=== PATIENT | female | born 1975 | race Caucasian/White ===

== ENCOUNTER 2016-05-04 13:40 | Inpatient (IN) ==
--- NOTE | 2016-05-04 13:51 | Emergency Department Note ---
Overdose - Lab Data Result diagrams: 05/04/16 14:15 05/04/16 14:15 Lab Results 05/04/16 05/04/16 05/04/16 Range/Units 14:15 14:15 14:15 WBC 8.2 (4.3-11.1) K/mcL RBC 4.61 (3.82-4.97) M/mcL Hgb 13.0 (11.5-15.4) g/dL Hct 40.9 (35.3-44.9) % MCV 88.7 (83.0-100.0) fL MCH 28.2 (28.0-33.3) pg MCHC 31.8 (31.6-35.5) g/dL RDW 12.2 (11.5-14.5) % Plt Count 267 (140-400) K/mcL MPV 10.4 (9.4-12.4) fL Immature Gran % 0.4 (0-4) % Seg Neutrophils % 74.6 % Lymphocytes % 17.5 % Monocytes % 3.3 % Eosinophils % 4.0 % Basophils % 0.2 % Neutrophils # 6.1 (1.6-8.9) K/mcL Lymphocytes # 1.4 (0.6-4.6) K/mcL Monocytes # 0.3 (0.0-1.3) K/mcL Eosinophils # 0.3 (0.0-0.6) K/mcL Basophils # 0.0 (0.0-0.2) K/mcL Sodium 139 (136-145) mEq/L Potassium 4.4 (3.5-4.5) mEq/L Chloride 107 (98-109) mEq/L Carbon Dioxide 21 (19-29) mEq/L BUN 11 (7-20) mg/dL Creatinine 1.00 (0.57-1.11) mg/dL Est GFR ( Amer) > 60 (> 60) Est GFR (Non-Af Amer) > 60 (> 60) BUN/Creatinine Ratio 11 (6-26) Glucose 229 H (70-99) mg/dL Calculated Osmolality 295 (280-300) Calcium 8.2 L (8.6-10.8) mg/dL Total Bilirubin 0.6 (0.2-1.2) mg/dL Direct Bilirubin 0.2 (0.0-0.5) mg/dL Indirect Bilirubin 0.4 (0.0-1.2) mg/dL AST 27 (5-34) Units/L ALT 25 (0-55) Units/L Alkaline Phosphatase 73 (38-126) Units/L Serum Total Protein 7.1 (6.0-8.3) g/dL Albumin 3.6 (3.5-5.0) g/dL Globulin 3.5 (2.4-3.5) g/dL Albumin/Globulin Ratio 1.0 L (1.1-2.2) Serum , Qual Negative (Negative) Urine Color (Yellow) Urine Clarity (Clear) Urine pH (5.0-8.0) pH Units Ur Specific [place] (1.010-1.025) Urine Protein (Neg-Trace) mg/dL Urine Glucose (UA) (Normal) mg/dL Urine Ketones (Negative) mg/dL Urine Blood (Negative) Urine Nitrite (Negative) Urine Bilirubin (Negative) Urine Urobilinogen (Normal) mg/dL Ur Leukocyte Esterase (Negative) Urine Microscopic RBC (0-3) per hpf Urine Microscopic WBC (0-3) per hpf Ur Squamous Epith Cells (None-Few) per lpf Urine Bacteria (None-Few) per hpf Hyaline Casts (None-Few) per lpf Salicylates < 5.0 L (15-30) mg/dL Urine Opiates Screen (Xpbtkl=216) ng/mL Acetaminophen < 1.0 L (10-30) mcg/mL Ur Barbiturates Screen (Ftqguo=452) ng/mL Ur Phencyclidine Scrn (Cutoff=25) ng/mL Ur Amphetamines Screen (Wzretp=0506) ng/mL U Benzodiazepines Scrn (Dbvruo=402) ng/mL Urine Cocaine Screen (Cutoff= 300) ng/mL U Marijuana (THC) Screen (Cutoff = 50) ng/mL Ethyl Alcohol < 10 (0-10) mg/dL 05/04/16 05/04/16 Range/Units 14:55 14:55 WBC (4.3-11.1) K/mcL RBC (3.82-4.97) M/mcL Hgb (11.5-15.4) g/dL Hct (35.3-44.9) % MCV (83.0-100.0) fL MCH (28.0-33.3) pg MCHC (31.6-35.5) g/dL RDW (11.5-14.5) % Plt Count (140-400) K/mcL MPV (9.4-12.4) fL Immature Gran % (0-4) % Seg Neutrophils % % Lymphocytes % % Monocytes % % Eosinophils % % Basophils % % Neutrophils # (1.6-8.9) K/mcL Lymphocytes # (0.6-4.6) K/mcL Monocytes # (0.0-1.3) K/mcL Eosinophils # (0.0-0.6) K/mcL Basophils # (0.0-0.2) K/mcL Sodium (136-145) mEq/L Potassium (3.5-4.5) mEq/L Chloride (98-109) mEq/L Carbon Dioxide (19-29) mEq/L BUN (7-20) mg/dL Creatinine (0.57-1.11) mg/dL Est GFR ( Amer) (> 60) Est GFR (Non-Af Amer) (> 60) BUN/Creatinine Ratio (6-26) Glucose (70-99) mg/dL Calculated Osmolality (280-300) Calcium (8.6-10.8) mg/dL Total Bilirubin (0.2-1.2) mg/dL Direct Bilirubin (0.0-0.5) mg/dL Indirect Bilirubin (0.0-1.2) mg/dL AST (5-34) Units/L ALT (0-55) Units/L Alkaline Phosphatase (38-126) Units/L Serum Total Protein (6.0-8.3) g/dL Albumin (3.5-5.0) g/dL Globulin (2.4-3.5) g/dL Albumin/Globulin Ratio (1.1-2.2) Serum , Qual (Negative) Urine Color Yellow (Yellow) Urine Clarity Cloudy A (Clear) Urine pH 6.0 (5.0-8.0) pH Units Ur Specific [place] 1.021 (1.010-1.025) Urine Protein 30 H (Neg-Trace) mg/dL Urine Glucose (UA) 100 H (Normal) mg/dL Urine Ketones Negative (Negative) mg/dL Urine Blood Small H (Negative) Urine Nitrite Negative (Negative) Urine Bilirubin Negative (Negative) Urine Urobilinogen Normal (Normal) mg/dL Ur Leukocyte Esterase Small H (Negative) Urine Microscopic RBC 3-5 H (0-3) per hpf Urine Microscopic WBC 30-50 H (0-3) per hpf Ur Squamous Epith Cells Many H (None-Few) per lpf Urine Bacteria Many H (None-Few) per hpf Hyaline Casts Few (None-Few) per lpf Salicylates (15-30) mg/dL Urine Opiates Screen Negative (Jkjjoh=677) ng/mL Acetaminophen (10-30) mcg/mL Ur Barbiturates Screen Negative (Bkbtnv=375) ng/mL Ur Phencyclidine Scrn Negative (Cutoff=25) ng/mL Ur Amphetamines Screen Negative (Unqcgg=9111) ng/mL U Benzodiazepines Scrn Positive H (Essvvg=999) ng/mL Urine Cocaine Screen Positive H (Cutoff= 300) ng/mL U Marijuana (THC) Screen Negative (Cutoff = 50) ng/mL Ethyl Alcohol (0-10) mg/dL Overdose HPI - General Chief Complaint: ED Overdose Stated Complaint: Overdose Time Seen by Provider: 05/04/16 13:46 Source: patient Mode of arrival: ambulatory Limitations: altered mental status Nursing Notes Reviewed: Yes Vital Signs Reviewed: Yes - History of Present Illness HPI Narrative: 41-year-old comes in apparent heroin overdose not sure of anything else. Patient somnolent but arousable. Squad did give Narcan 2 mg with some improvement in symptoms. Pt Subjective Complaint: accidental overdose Onset (ago): Just LIABILITY CLAIMS EXAMINER Timing confirmed by: caregiver How Overdose Was Discovered: other (Unknown) Treatments Prior to Arrival: narcan - Related Data Home Medications Medication Instructions Recorded Confirmed Depakote (12 HR) 500 mg PO BID 02/07/16 02/07/16 Gabapentin [Neurontin] 400 mg PO TID 02/07/16 02/07/16 Venlafaxine XR (24 HR) [Effexor XR] 75 mg PO DAILY 02/07/16 02/07/16 Previous Rx's Medication Instructions Recorded Acetaminophen [Tylenol] 650 mg PO Q6HR PRN #40 tablet 02/08/16 Lactobacillus [Culturelle] 1 each PO BID #60 cap.sprink 02/08/16 Naproxen [Naprosyn] 500 mg PO BIDWM PRN #10 tablet 02/08/16 Allergies Allergy/AdvReac Type Severity Reaction Status Date / Time No Known Allergies Allergy Verified 11/12/14 21:47 Limitations: ROS unobtainable due to patients medical condition Past Medical History - Past Medical History Medical history: Reports: other Surgical history: Reports: hysterectomy Psychiatric history: Reports: anxiety, bipolar, prior suicide attempt, previous psychiatric hospitalization, other - Social History Smoking Status: Former smoker Smokeless Tobacco Status: No Alcohol use: Reports: occasionally Drug use: Reports: cocaine, opiates, marijuana, IVDU Physical Exam - General Limitations: altered mental status General appearance: lethargic - Head Head exam: atraumatic, normocephalic, normal inspection - Eye Eye exam: Present: normal appearance, PERRL, EOMI - ENT ENT exam: normal exam, normal oropharynx, mucous membranes moist - Neck Neck exam: Present: normal inspection, full ROM, trachea midline - Chest Chest inspection: Present: normal inspection, symmetric chest wall rise - Respiratory Respiratory exam: Present: normal lung sounds bilaterally - Cardiovascular Cardiovascular exam: Present: regular rate, normal rhythm, normal heart sounds - Abdominal Exam Abdominal exam: Present: soft, Non-Tender. Absent: tenderness, distention, guarding, rebound, rigidity - Extremities Exam Extremities exam: Present: normal inspection, full ROM. Absent: tenderness, pedal edema - Expanded Lower Extremity Exam Neurovascular/Tendon exam: Absent: motor deficit, sensory deficit, tendon deficit Gait: not tested/not observed - Back Exam Back exam: Present: normal inspection, full ROM. Absent: tenderness - Neurological Exam Neurological exam: Present: alert, oriented X3 - Psychiatric Psychiatric exam: Present: normal affect, normal mood - Skin Skin exam: Present: warm, dry, intact, normal color Course - Reevaluation(s) Reevaluation #1: More easily arousable. Patient denies suicidal ideation. Respiratory rate is 12 Time: 15:52 Reevaluation #2: Continues to be somnolent although arousable. Will require monitoring. Time: 16:41 - Consultations Consultation #1: Accepted by Darlene Hodge nurse practitioner Time: 16:41 Vital Signs Temperature 97.3 F L 05/04/16 13:43 Pulse Rate 68 05/04/16 13:43 Respiratory Rate 10 05/04/16 13:43 Blood Pressure 126/86 05/04/16 13:43 O2 Sat by Pulse Oximetry 95 05/04/16 13:43 Temperature 97.3 F L 05/04/16 13:43 Pulse Rate 89 05/04/16 15:18 Respiratory Rate 15 05/04/16 15:18 Blood Pressure 116/78 05/04/16 15:18 O2 Sat by Pulse Oximetry 100 05/04/16 15:18 Oxygen Delivery Oxygen Delivery Room Air Disposition Clinical Impression: Polysubstance abuse Cocaine intoxication Qualifiers: Complication of substance-induced condition: uncomplicated Qualified Code(s): F14.920 - Cocaine use, unspecified with intoxication, uncomplicated Disposition: Admitted As Inpatient Condition: Fair Referrals: NO,PCP [Primary Care Provider] - Forms: ED Satisfaction Letter Time of Disposition: 16:42
[2016-05-04 14:26] LABS: Basophils % 0.2 %; Eosinophils # 0.3 K/mcL (0.0-0.6); Hematocrit 40.9 % (35.3-44.9); Immature Granulocytes % 0.4 % (0-4); Lymphocytes # 1.4 K/mcL (0.6-4.6); Lymphocytes % 17.5 %; Mean Corpuscular HGB Conc 31.8 g/dL (31.6-35.5); Mean Corpuscular Hemoglobin 28.2 pg (28.0-33.3); Mean Corpuscular Volume 88.7 fL (83.0-100.0); Mean Platelet Volume 10.4 fL (9.4-12.4); Monocytes # 0.3 K/mcL (0.0-1.3); Monocytes % 3.3 %; Neutrophils # 6.1 K/mcL (1.6-8.9); Platelet Count 267 K/mcL (140-400); Red Blood Count 4.61 M/mcL (3.82-4.97); Red Cell Distribution Width 12.2 % (11.5-14.5); Segmented Neutrophils % 74.6 %
[2016-05-04 14:41] LABS: Alanine Aminotransferase 25 Units/L (0-55); Albumin 3.6 g/dL (3.5-5.0); Alkaline Phosphatase 73 Units/L (38-126); Aspartate Amino Transferase 27 Units/L (5-34); BUN/Creatinine Ratio 11 (6-26); Bilirubin,Direct 0.2 mg/dL (0.0-0.5); Bilirubin,Indirect 0.4 mg/dL (0.0-1.2); Bilirubin,Total 0.6 mg/dL (0.2-1.2); Blood Urea Nitrogen 11 mg/dL (7-20); Calcium 8.2 mg/dL (8.6-10.8); Carbon Dioxide 21 mEq/L (19-29); Chloride 107 mEq/L (98-109); Globulin 3.5 g/dL (2.4-3.5); Glucose 229 mg/dL (70-99); Osmolality,Calculated 295 (280-300); Potassium 4.4 mEq/L (3.5-4.5); Sodium 139 mEq/L (136-145); Total Protein 7.1 g/dL (6.0-8.3); eGFR For African Americans > 60 (> 60); eGFR For Non-African Americans > 60 (> 60)
[2016-05-04 14:44] LABS: Acetaminophen < 1.0 mcg/mL (10-30); Ethanol < 10 mg/dL (0-10); Salicylate < 5.0 mg/dL (15-30)
[2016-05-04 15:08] LABS: Bilirubin,Urine Negative (Negative); Blood,Urine Small (Negative); Clarity,Urine Cloudy (Clear); Color,Urine Yellow (Yellow); Glucose,Urine (UA) 100 mg/dL (Normal); Ketones,Urine Negative (Negative); Leukocyte Esterase,Urine Small (Negative); Nitrite,Urine Negative (Negative); Protein,Urine 30 mg/dL (Neg-Trace); Specific Gravity,Urine 1.021 (1.010-1.025); Urobilinogen,Urine Normal (Normal)
[2016-05-04 15:10] LABS: Bacteria,Urine Many per hpf (None-Few); Hyaline Casts,Urine Few per lpf (None-Few); Squamous Epithelial Cell,Urine Many per lpf (None-Few); WBC,Urine 30-50 per hpf (0-3)
[2016-05-04 15:14] LABS: Amphetamine Screen,Urine Negative ng/mL (Cutoff=1000); Barbiturate Screen,Urine Negative ng/mL (Cutoff=200); Benzodiazepines Screen,Urine Positive ng/mL (Cutoff=200); Cannabinoid Screen,Urine Negative ng/mL (Cutoff = 50); Cocaine Screen,Urine Positive ng/mL (Cutoff= 300); Opiate Screen,Urine Negative ng/mL (Cutoff=300); Phencyclidine Screen,Urine Negative ng/mL (Cutoff=25)
[2016-05-04] MEDS ORDERED: Naloxone 0.4 MG/ML INJ IVP PRN (18:48)
[2016-05-04] MEDS ORDERED: Ondansetron 4 MG/2 ML VIAL IVP PRN (18:48)
[2016-05-04] MEDS ORDERED: *HR* LORazepam 2 MG/ML VIAL IVP PRN (18:53)
[2016-05-04] MEDS ORDERED: Azithromycin 250 MG TABLET PO ONE (18:55)
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
[2016-05-04] MEDS: Famotidine 20 MG TABLET PO SCH (20:19)
[2016-05-04] MEDS: 0.9 % Sodium Chloride 1,000 ML IVC SCH (20:19)
[2016-05-04] MEDS: Acetaminophen 325 MG TABLET PO PRN (20:35)
[2016-05-05] MEDS: 0.9 % Sodium Chloride 1,000 ML IVC SCH ×2 (05:41→16:43)
[2016-05-05 06:56] LABS: Hematocrit 36.1 % (35.3-44.9); Hemoglobin 11.6 g/dL (11.5-15.4); Mean Corpuscular HGB Conc 32.1 g/dL (31.6-35.5); Mean Corpuscular Hemoglobin 28.4 pg (28.0-33.3); Mean Corpuscular Volume 88.5 fL (83.0-100.0); Mean Platelet Volume 10.6 fL (9.4-12.4); Platelet Count 227 K/mcL (140-400); Red Blood Count 4.08 M/mcL (3.82-4.97); Red Cell Distribution Width 12.5 % (11.5-14.5)
[2016-05-05 07:08] LABS: BUN/Creatinine Ratio 11 (6-26); Blood Urea Nitrogen 9 mg/dL (7-20); Calcium 8.2 mg/dL (8.6-10.8); Carbon Dioxide 25 mEq/L (19-29); Chloride 107 mEq/L (98-109); Glucose 89 mg/dL (70-99); Magnesium 1.9 mg/dL (1.6-2.6); Osmolality,Calculated 284 (280-300); Potassium 3.7 mEq/L (3.5-4.5); Sodium 138 mEq/L (136-145); eGFR For African Americans > 60 (> 60); eGFR For Non-African Americans > 60 (> 60)
[2016-05-05] MEDS: Folic Acid 1 MG TABLET PO SCH (09:38)
[2016-05-05] MEDS: Thiamine (B-1) 100 MG TABLET PO SCH (09:38)
[2016-05-05] MEDS: Famotidine 20 MG TABLET PO SCH ×2 (09:38→19:54)
[2016-05-05] MEDS: *HR* LORazepam 2 MG/ML VIAL IVP PRN ×3 (09:58→23:05)
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
[2016-05-05] MEDS: Acetaminophen 325 MG TABLET PO PRN (20:04)
[2016-05-06] MEDS: 0.9 % Sodium Chloride 1,000 ML IVC SCH ×3 (03:25→22:24)
[2016-05-06] MEDS: *HR* Heparin 5,000 UNIT/ML VIAL SQ SCH ×2 (05:44→18:37)
--- NOTE | 2016-05-06 07:53 | Electrocardiograph Report ---
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
[2016-05-06] MEDS: Famotidine 20 MG TABLET PO SCH ×2 (08:08→21:08)
[2016-05-06] MEDS: Folic Acid 1 MG TABLET PO SCH (08:08)
[2016-05-06] MEDS: Thiamine (B-1) 100 MG TABLET PO SCH (08:08)
[2016-05-06] MEDS: *HR* LORazepam 2 MG/ML VIAL IVP PRN ×2 (09:01→18:37)
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
[2016-05-06] MEDS: Acetaminophen 325 MG TABLET PO PRN (22:23)
[2016-05-07] MEDS: *HR* LORazepam 2 MG/ML VIAL IVP PRN ×4 (01:19→23:01)
[2016-05-07 06:07] LABS: Basophils % 0.4 %; Eosinophils # 0.4 K/mcL (0.0-0.6); Eosinophils % 6.6 %; Hematocrit 35.2 % (35.3-44.9); Hemoglobin 11.6 g/dL (11.5-15.4); Immature Granulocytes % 0.4 % (0-4); Lymphocytes # 1.8 K/mcL (0.6-4.6); Lymphocytes % 33.1 %; Mean Corpuscular Hemoglobin 28.7 pg (28.0-33.3); Mean Corpuscular Volume 87.1 fL (83.0-100.0); Mean Platelet Volume 10.7 fL (9.4-12.4); Monocytes # 0.3 K/mcL (0.0-1.3); Neutrophils # 2.9 K/mcL (1.6-8.9); Platelet Count 230 K/mcL (140-400); Red Blood Count 4.04 M/mcL (3.82-4.97); Red Cell Distribution Width 11.9 % (11.5-14.5); Segmented Neutrophils % 53.5 %
[2016-05-07 06:22] LABS: BUN/Creatinine Ratio 8 (6-26); Blood Urea Nitrogen 6 mg/dL (7-20); Calcium 8.5 mg/dL (8.6-10.8); Carbon Dioxide 24 mEq/L (19-29); Chloride 108 mEq/L (98-109); Glucose 97 mg/dL (70-99); Osmolality,Calculated 286 (280-300); Potassium 3.9 mEq/L (3.5-4.5); Sodium 139 mEq/L (136-145); eGFR For African Americans > 60 (> 60); eGFR For Non-African Americans > 60 (> 60)
[2016-05-07] MEDS: *HR* Heparin 5,000 UNIT/ML VIAL SQ SCH ×2 (06:22→16:57)
[2016-05-07] MEDS: Thiamine (B-1) 100 MG TABLET PO SCH (08:41)
[2016-05-07] MEDS: Folic Acid 1 MG TABLET PO SCH (08:41)
[2016-05-07] MEDS: Famotidine 20 MG TABLET PO SCH ×2 (08:41→22:10)
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
[2016-05-07] MEDS: 0.9 % Sodium Chloride 1,000 ML IVC SCH ×2 (16:56→22:09)
[2016-05-08] MEDS: *HR* Heparin 5,000 UNIT/ML VIAL SQ SCH (05:13)
[2016-05-08] MEDS: Famotidine 20 MG TABLET PO SCH (09:30)
[2016-05-08] MEDS: Folic Acid 1 MG TABLET PO SCH (09:30)
[2016-05-08] MEDS: Thiamine (B-1) 100 MG TABLET PO SCH (09:30)
[2016-05-08 12:28] LABS: Hepatitis B Surface Antigen Nonreactive (Nonreactive)
[2016-05-08 13:05] LABS: Hepatitis A Antibody IgM Nonreactive (Nonreactive); Hepatitis B Surface Antibody 18.96 mIU/mL
[2016-05-08 13:06] LABS: Hepatitis C Virus Antibody Reactive (Nonreactive)
[2016-05-08 15:11] VITALS: BP 123/80
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
== END 2016-05-08 18:03 | disposition left against medical advice (07) | DRG 816 ==
LOC: EMEROO 13:40 → 2NENU 13:40 → SUATTDRO 18:48
PROVIDERS: ADMIT Nurse Practitioner Family; ATTEND Internal Medicine

== ENCOUNTER 2016-05-28 00:35 | Observation (INO) ==
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
[2016-05-28 03:19] LABS: Basophils % 0.3 %; Eosinophils # 0.1 K/mcL (0.0-0.6); Eosinophils % 1.5 %; Hematocrit 35.9 % (35.3-44.9); Hemoglobin 11.8 g/dL (11.5-15.4); Immature Granulocytes % 0.4 % (0-4); Lymphocytes # 0.7 K/mcL (0.6-4.6); Lymphocytes % 10.1 %; Mean Corpuscular HGB Conc 32.9 g/dL (31.6-35.5); Mean Corpuscular Hemoglobin 28.8 pg (28.0-33.3); Mean Corpuscular Volume 87.6 fL (83.0-100.0); Mean Platelet Volume 10.6 fL (9.4-12.4); Monocytes # 0.3 K/mcL (0.0-1.3); Monocytes % 3.9 %; Neutrophils # 6.1 K/mcL (1.6-8.9); Platelet Count 245 K/mcL (140-400); Red Cell Distribution Width 12.7 % (11.5-14.5); Segmented Neutrophils % 83.8 %
[2016-05-28 03:28] LABS: Bilirubin,Urine Negative (Negative); Blood,Urine Negative (Negative); Clarity,Urine Clear (Clear); Color,Urine Yellow (Yellow); Glucose,Urine (UA) Normal (Normal); Ketones,Urine Negative (Negative); Leukocyte Esterase,Urine Negative (Negative); Nitrite,Urine Negative (Negative); Protein,Urine 30 mg/dL (Neg-Trace); Specific Gravity,Urine 1.022 (1.010-1.025); Urobilinogen,Urine Normal (Normal)
[2016-05-28 03:31] LABS: Bacteria,Urine None Seen per hpf (None-Few); Hyaline Casts,Urine None Seen per lpf (None-Few); RBC,Urine 0-3 per hpf (0-3); Squamous Epithelial Cell,Urine Many per lpf (None-Few); WBC,Urine 0-3 per hpf (0-3)
[2016-05-28 03:34] LABS: Amphetamine Screen,Urine Negative ng/mL (Cutoff=1000); Barbiturate Screen,Urine Negative ng/mL (Cutoff=200); Benzodiazepines Screen,Urine Positive ng/mL (Cutoff=200); Cannabinoid Screen,Urine Negative ng/mL (Cutoff = 50); Cocaine Screen,Urine Positive ng/mL (Cutoff= 300); Opiate Screen,Urine Negative ng/mL (Cutoff=300); Phencyclidine Screen,Urine Negative ng/mL (Cutoff=25)
[2016-05-28 03:36] LABS: Acetaminophen < 1.0 mcg/mL (10-30); Alanine Aminotransferase 222 Units/L (0-55); Albumin 3.8 g/dL (3.5-5.0); Alkaline Phosphatase 144 Units/L (38-126); Aspartate Amino Transferase 119 Units/L (5-34); BUN/Creatinine Ratio 11 (6-26); Bilirubin,Direct 0.2 mg/dL (0.0-0.5); Bilirubin,Indirect 0.4 mg/dL (0.0-1.2); Bilirubin,Total 0.6 mg/dL (0.2-1.2); Blood Urea Nitrogen 9 mg/dL (7-20); Carbon Dioxide 26 mEq/L (19-29); Chloride 103 mEq/L (98-109); Ethanol < 10 mg/dL (0-10); Globulin 3.7 g/dL (2.4-3.5); Glucose 102 mg/dL (70-99); Osmolality,Calculated 287 (280-300); Potassium 3.2 mEq/L (3.5-4.5); Salicylate < 5.0 mg/dL (15-30); Sodium 139 mEq/L (136-145); Total Protein 7.5 g/dL (6.0-8.3); eGFR For African Americans > 60 (> 60); eGFR For Non-African Americans > 60 (> 60)
--- NOTE | 2016-05-28 05:28 | Internal Med History&Physical ---
<José Fry - Last Filed: 05/28/16 08:48> Date of Encounter: 05/28/16 Time of Encounter: 05:25 Assessment and Plan (7) Elevated LFTs Current visit: Yes Status: Acute -unknown reason -ALT>AST. not suspecting alcohol. (8) Cocaine abuse Current visit: Yes Status: Acute (9) Benzodiazepine abuse Current visit: Yes Status: Acute -see above (10) Overdose Current visit: Yes Status: Acute -tox screen positive for Benzo and cocaine -Patient does not display myoclonus/no temperature. Not concerned for seritonin syndrome at this time. -Negative acute findings with CXR, CT Head, EKG -Vitals normal and on room air. Protecting airway. -GCS 10. No intubation needed at this time. -Flumazinil and narcan given in ED. Will not give flumazinil at this time-risk from withdraw from chronic benzo use -Hypokalemia, unknown reason Plan -2N beds full, will place in ICU -Replaced potassium -Start IV NS fluid replacement -Neurochecks -Recheck acetaminophen lvl Qualifiers: Encounter type: initial encounter Injury intent: undetermined intent Qualified Code(s): T50.904A - Poisoning by unspecified drugs, medicaments and biological substances, undetermined, initial encounter (11) Altered mental status Current visit: Yes Status: Acute Qualifiers: Altered mental status type: unspecified Qualified Code(s): R41.82 - Altered mental status, unspecified (12) DVT prophylaxis Current visit: Yes Status: Acute will give sq lovenox Internal Medicine - H&P: HPI Chief complaint: Drug overdose Admitted From: Emergency Dept Plans for Post Hospital Care: Home History of present illness: Ms. Rubi is a 41 year old female admitted for drug overdose. Brought to ED by EMS. Patient found unresponsive near home. Given 2mg of intranasal narcan with minimal wakefulness. Earlier in ED patient stated her name and nothing else. Currently, patient is not stating name. Does open eyes to painful stimuli and follows commands (moves toes bilaterally). She is protecting her airway and vitals are WNL and on Room air. No one else present in room. Past Med Surg Social Fam HX - Past Medical History Medical history: other - Social History Smoking Status: Unknown if ever smoked Internal Medicine - H&P: Meds Allergies No Known Allergies Allergy (Verified 11/12/14 21:47) All Systems PM: A 10-system review of systems was performed and is negative for pertinent findings except as documented above in the HPI. - Constitutional Vitals: Temp Pulse Resp BP Pulse Ox 97.5 F L 66 13 115/70 99 05/28/16 00:39 05/28/16 05:02 05/28/16 05:14 05/28/16 05:14 05/28/16 05:02 General appearance: Present: A&O X 0. Absent: answers questions appropriately - Head Head exam: Present: atraumatic, normocephalic - Eye Eye exam: Absent: conjunctival injection Pupils: Present: mydriatic, PERRL. Absent: fixed, irregular - ENT ENT exam: Present: mucous membranes dry - Respiratory Respiratory exam: Present: CTAB. Absent: decreased breath sounds, rales, rhonchi - Cardiovascular Cardiovascular exam: Present: RRR, +S1, +S2. Absent: diastolic murmur, systolic murmur - GI/Abdominal GI/Abdominal exam: Present: normal bowel sounds, soft, no peritoneal signs. Absent: rigid - Extremities Exam Extremities exam: Present: warm, radial pulses palpable and symetrical. Absent : cyanotic, pedal edema - Neurological Exam Neurological exam: Present: altered. Absent: alert, oriented X3 Additional comments: No myoclonus. Is not ridged. - Expanded Neurological Exam Coma Scale Eye Opening: To Voice Coma Scale Motor Response: Obeys Commands Coma Scale Verbal Response: None Coma Scale Total: 10 - Psychiatric Psychiatric exam: Absent: agitated - Skin Skin exam: Present: dry, intact, warm Internal Med - H&P Results - Labs CBC & Chem 7: 05/28/16 03:12 05/28/16 03:12 <Berta Millan - Last Filed: 05/29/16 08:16> Date of Encounter: 05/29/16 Internal Medicine - H&P: HPI History of present illness: Ms. Rubi is a 41 year old female All Systems PM: A 10-system review of systems was performed and is negative for pertinent findings except as documented above in the HPI. - Constitutional Vitals: Temp Pulse Resp BP Pulse Ox 98.4 F 50 12 144/88 98 05/29/16 08:00 05/29/16 08:00 05/29/16 08:00 05/29/16 08:00 05/29/16 08:00 Internal Med - H&P Results - Labs CBC & Chem 7: 05/29/16 04:40 05/29/16 04:40 Labs: Short CBC 05/29/16 Range/Units 04:40 WBC 3.5 L D (4.3-11.1) K/mcL Hgb 10.7 L (11.5-15.4) g/dL Hct 33.0 L (35.3-44.9) % Plt Count 148 (140-400) K/mcL Neutrophils # 1.5 L (1.6-8.9) K/mcL BMP 05/28/16 05/29/16 10:41 04:40 Sodium 139 139 Potassium 3.7 4.0 Chloride 105 109 Carbon Dioxide 25 24 BUN 7 6 L Creatinine 0.70 0.68 Glucose 91 80 Calcium 8.7 8.2 L Liver Function 05/29/16 Range/Units 04:40 Total Bilirubin 0.8 (0.2-1.2) mg/dL Direct Bilirubin 0.4 (0.0-0.5) mg/dL AST 41 H (5-34) Units/L ALT 126 H (0-55) Units/L Alkaline Phosphatase 105 (38-126) Units/L Albumin 2.9 L D (3.5-5.0) g/dL - Attending Attestation Patient seen and examined with PGY-1 José Fry, agree with assessment and plan. Patient with polysubstance abuse (heroin, cocaine, opiates, benzos), admitted with overdose. Patient somnolent but does open eyes to sternal rub and is protecting airway. Will monitor closely in ICU overnight.
[2016-05-28] MEDS ORDERED: Naloxone 0.4 MG/ML INJ IVP PRN ×2 (05:45→18:42)
[2016-05-28] MEDS ORDERED: 0.9 % Sodium Chloride 1,000 ML IVC SCH ×2 (05:45→11:18)
[2016-05-28 11:05] LABS: Acetaminophen < 1.0 mcg/mL (10-30)
[2016-05-28] MEDS ORDERED: Potassium Chloride 20 MEQ, Lidocaine 1% 2 ML in D5% in Water 250 ML IVPB ONE (11:18)
--- NOTE | 2016-05-28 11:26 | Internal Med Progress Note ---
Date of Encounter: 05/28/16 Time of Encounter: 11:23 - Assessment and plan (1) Overdose Current Visit: Yes Status: Acute Assessment and plan: drug overdose, positive utox for both cocaine and benzos. was given both narcan and flumazenil in the ED. continue monitoring. can be transferred to when bed available. elevated LFTs, will get hepatitis panel, HIV. social media marketing manager consult. NPO for now. increase iv fluids. bladder scan, monitor input and output. DVT and GI prophylaxis. supplement potassium. check magnesium and cpk. head ct and CXR reports reviewed. Qualifiers: Encounter type: initial encounter Injury intent: undetermined intent Qualified Code(s): T50.904A - Poisoning by unspecified drugs, medicaments and biological substances, undetermined, initial encounter (2) DVT prophylaxis Current Visit: Yes Status: Acute - Subjective Interval history: 1st encounter with the patient. No fever, No urine output reported. Responds to painful stimuli. - Constitutional Vitals: Temp Pulse Resp BP Pulse Ox 97.9 F 64 12 124/77 99 05/28/16 07:37 05/28/16 11:13 05/28/16 11:13 05/28/16 11:13 05/28/16 11:13 General appearance: Present: A&O X 0, disheveled, no acute distress. Absent: answers questions appropriately - Head Head exam: Present: atraumatic, normocephalic - Eye Eye exam: Present: PERRL, conjuntiva pink, sclera anicteric Pupils: Present: PERRL - Neck Neck exam general surgery: Present: supple, trachea midline. Absent: lymphadenopathy - Respiratory Respiratory exam: Present: CTAB. Absent: accessory muscle use, rales, rhonchi, wheezes - Cardiovascular Cardiovascular exam: Present: RRR, +S1, +S2. Absent: diastolic murmur, gallop, rubs, systolic murmur - GI/Abdominal GI/Abdominal exam: Present: normal bowel sounds, soft, no peritoneal signs. Absent: distended, tenderness - Extremities Exam Extremities exam: Present: warm, radial pulses palpable and symetrical. Absent : calf tenderness, cyanotic, pedal edema - Neurological Exam Neurological exam: Present: CN II-XII intact. Absent: pronater drift, facial droop, speech deficit - Skin Skin exam: Present: dry Internal Medicine: Result - Labs CBC & Chem 7: 05/28/16 03:12 05/28/16 03:12 Consult Discharge Plan - Plan Referrals: NO,PCP [Primary Care Provider] -
[2016-05-28] MEDS: Famotidine 20 MG/2 ML VIAL IVP SCH ×2 (12:56→17:11)
--- NOTE | 2016-05-28 13:37 | Electrocardiograph Report ---
[address] [place], [place] [address] Test Date: 2016-05-28 Pat Name: Marion Rubi Department: 105 Room: 10 Gender: F Manager Clinical Pharmacy: [facility] : [id number] Requested By: Vinh Grubbs Order Number: [id number] Reading MD: Preston Mandujano MD Measurements Intervals [place] Rate: 79 P: 46 UT: 156 QRS: 31 QRSD: 90 T: 38 QT: 333 QTc: 368 Interpretive Statements SINUS RHYTHM WITH OCCASIONAL SUPRAVENTRICULAR PREMATURE COMPLEXES BASELINE ARTIFACT Electronically Signed On 05-28-2016 13:36:17 EDT by Preston Mandujano MD
[2016-05-28 13:52] LABS: BUN/Creatinine Ratio 10 (6-26); Blood Urea Nitrogen 7 mg/dL (7-20); Calcium 8.7 mg/dL (8.6-10.8); Carbon Dioxide 25 mEq/L (19-29); Chloride 105 mEq/L (98-109); Creatine Kinase 25 Units/L (29-168); Glucose 91 mg/dL (70-99); Magnesium 1.8 mg/dL (1.6-2.6); Osmolality,Calculated 286 (280-300); Potassium 3.7 mEq/L (3.5-4.5); Sodium 139 mEq/L (136-145); eGFR For African Americans > 60 (> 60); eGFR For Non-African Americans > 60 (> 60)
[2016-05-28 14:45] LABS: Hepatitis B Surface Antigen Nonreactive (Nonreactive)
[2016-05-28] MEDS ORDERED: *HR* Enoxaparin 30 MG/0.3 ML SYRINGE SQ SCH (18:00)
[2016-05-28] MEDS: Ondansetron 4 MG/2 ML VIAL IVP PRN (22:02)
[2016-05-29] MEDS: 0.9 % Sodium Chloride 1,000 ML IVC SCH ×4 (01:31→18:14)
[2016-05-29 04:58] LABS: Basophils % 0.3 %; Eosinophils # 0.2 K/mcL (0.0-0.6); Eosinophils % 5.4 %; Hemoglobin 10.7 g/dL (11.5-15.4); Immature Granulocytes % 0.3 % (0-4); Lymphocytes # 1.5 K/mcL (0.6-4.6); Lymphocytes % 42.8 %; Mean Corpuscular HGB Conc 32.4 g/dL (31.6-35.5); Mean Corpuscular Hemoglobin 28.4 pg (28.0-33.3); Mean Corpuscular Volume 87.5 fL (83.0-100.0); Mean Platelet Volume 11.4 fL (9.4-12.4); Monocytes # 0.3 K/mcL (0.0-1.3); Monocytes % 7.1 %; Platelet Count 148 K/mcL (140-400); Red Blood Count 3.77 M/mcL (3.82-4.97); Red Cell Distribution Width 12.7 % (11.5-14.5); Segmented Neutrophils % 44.1 %
[2016-05-29 04:59] LABS: Neutrophils # 1.5 K/mcL (1.6-8.9)
[2016-05-29 05:24] LABS: Alanine Aminotransferase 126 Units/L (0-55); Albumin 2.9 g/dL (3.5-5.0); Albumin/Globulin Ratio 0.9 (1.1-2.2); Alkaline Phosphatase 105 Units/L (38-126); Aspartate Amino Transferase 41 Units/L (5-34); BUN/Creatinine Ratio 9 (6-26); Bilirubin,Direct 0.4 mg/dL (0.0-0.5); Bilirubin,Indirect 0.4 mg/dL (0.0-1.2); Bilirubin,Total 0.8 mg/dL (0.2-1.2); Blood Urea Nitrogen 6 mg/dL (7-20); Calcium 8.2 mg/dL (8.6-10.8); Carbon Dioxide 24 mEq/L (19-29); Chloride 109 mEq/L (98-109); Globulin 3.1 g/dL (2.4-3.5); Glucose 80 mg/dL (70-99); Osmolality,Calculated 285 (280-300); Sodium 139 mEq/L (136-145); eGFR For African Americans > 60 (> 60); eGFR For Non-African Americans > 60 (> 60)
[2016-05-29] MEDS: Famotidine 20 MG/2 ML VIAL IVP SCH ×2 (05:41→17:43)
[2016-05-29] MEDS: *HR* Enoxaparin 30 MG/0.3 ML SYRINGE SQ SCH ×2 (05:41→17:42)
[2016-05-29 09:30] LABS: Hepatitis A Antibody IgM Nonreactive (Nonreactive); Hepatitis B Core IgM Nonreactive (Nonreactive)
[2016-05-29 09:31] LABS: Hepatitis C Virus Antibody Reactive (Nonreactive)
[2016-05-29] MEDS: Ondansetron 4 MG/2 ML VIAL IVP PRN (09:52)
--- NOTE | 2016-05-29 15:41 | Internal Med Progress Note ---
Date of Encounter: 05/29/16 Time of Encounter: 10:30 - Assessment and plan (1) Overdose Current Visit: Yes Status: Acute Assessment and plan: drug overdose, positive utox for both cocaine and benzos. more alert than yesterday. was given both narcan and flumazenil in the ED. continue monitoring. elevated LFTs, hepatitis panel, positive for hep c, would consider discussion regarding HIV testing once more alert. social work coordinator consult, plan is continuity of care at [facility], see social work coordinator note for details. NPO for now. continue with iv fluids. monitor input and output. DVT and GI prophylaxis. head ct and CXR reports reviewed. Qualifiers: Encounter type: initial encounter Injury intent: undetermined intent Qualified Code(s): T50.904A - Poisoning by unspecified drugs, medicaments and biological substances, undetermined, initial encounter (2) DVT prophylaxis Current Visit: Yes Status: Acute - Subjective Interval history: patient sen and examined during rounds, looks more alert however still sleepy. repsonds to verbal stimuli and follows commands. - Constitutional Vitals: Temp Pulse Resp BP Pulse Ox 98.3 F 55 12 151/81 97 05/29/16 15:17 05/29/16 15:17 05/29/16 15:17 05/29/16 15:17 05/29/16 15:17 General appearance: Present: disheveled, A&O X 2, no acute distress. Absent: answers questions appropriately - Head Head exam: Present: atraumatic, normocephalic - Eye Eye exam: Present: PERRL, conjuntiva pink, sclera anicteric Pupils: Present: PERRL - Neck Neck exam general surgery: Present: supple, trachea midline. Absent: lymphadenopathy - Respiratory Respiratory exam: Present: CTAB. Absent: accessory muscle use, rales, rhonchi, wheezes - Cardiovascular Cardiovascular exam: Present: RRR, +S1, +S2. Absent: diastolic murmur, gallop, rubs, systolic murmur - GI/Abdominal GI/Abdominal exam: Present: normal bowel sounds, soft, no peritoneal signs. Absent: distended, tenderness - Extremities Exam Extremities exam: Present: warm, radial pulses palpable and symetrical. Absent : calf tenderness, cyanotic, pedal edema - Neurological Exam Neurological exam: Present: CN II-XII intact, oriented X3, no focal deficits. Absent: pronater drift, facial droop, speech deficit - Skin Skin exam: Present: dry, intact Internal Medicine: Result - Labs CBC & Chem 7: 05/29/16 04:40 05/29/16 04:40 Labs: Short CBC 05/29/16 Range/Units 04:40 WBC 3.5 L D (4.3-11.1) K/mcL Hgb 10.7 L (11.5-15.4) g/dL Hct 33.0 L (35.3-44.9) % Plt Count 148 (140-400) K/mcL Neutrophils # 1.5 L (1.6-8.9) K/mcL BMP 05/29/16 04:40 Sodium 139 Potassium 4.0 Chloride 109 Carbon Dioxide 24 BUN 6 L Creatinine 0.68 Glucose 80 Calcium 8.2 L Liver Function 05/29/16 Range/Units 04:40 Total Bilirubin 0.8 (0.2-1.2) mg/dL Direct Bilirubin 0.4 (0.0-0.5) mg/dL AST 41 H (5-34) Units/L ALT 126 H (0-55) Units/L Alkaline Phosphatase 105 (38-126) Units/L Albumin 2.9 L D (3.5-5.0) g/dL Consult Discharge Plan - Plan Referrals: NO,PCP [Primary Care Provider] -
[2016-05-29] MEDS ORDERED: Ibuprofen 400 MG TABLET PO PRN ×2 (18:03→18:20)
[2016-05-30] MEDS: Famotidine 20 MG/2 ML VIAL IVP SCH (05:06)
[2016-05-30 05:30] LABS: Albumin 2.8 g/dL (3.5-5.0); Albumin/Globulin Ratio 0.9 (1.1-2.2); Bilirubin,Direct 0.3 mg/dL (0.0-0.5); Bilirubin,Indirect 0.3 mg/dL (0.0-1.2); Bilirubin,Total 0.6 mg/dL (0.2-1.2); Globulin 3.1 g/dL (2.4-3.5); Total Protein 5.9 g/dL (6.0-8.3)
[2016-05-30 05:30] LABS: Red Cell Distribution Width 12.4 % (11.5-14.5)
[2016-05-30 05:34] LABS: BUN/Creatinine Ratio 13 (6-26); Blood Urea Nitrogen 9 mg/dL (7-20); Calcium 8.2 mg/dL (8.6-10.8); Carbon Dioxide 20 mEq/L (19-29); Chloride 110 mEq/L (98-109); Glucose 72 mg/dL (70-99); Osmolality,Calculated 285 (280-300); Potassium 3.9 mEq/L (3.5-4.5); Sodium 139 mEq/L (136-145); eGFR For African Americans > 60 (> 60); eGFR For Non-African Americans > 60 (> 60)
[2016-05-30] MEDS ORDERED: *HR* Enoxaparin 30 MG/0.3 ML SYRINGE SQ SCH ×2 (06:00)
[2016-05-30 06:42] LABS: Basophils % 0.3 %; Eosinophils # 0.2 K/mcL (0.0-0.6); Eosinophils % 4.7 %; Hematocrit 33.3 % (35.3-44.9); Hemoglobin 11.1 g/dL (11.5-15.4); Immature Granulocytes % 0.5 % (0-4); Immature Platelets 4.8 % (1.1-6.1); Lymphocytes # 1.1 K/mcL (0.6-4.6); Lymphocytes % 29.4 %; Mean Corpuscular HGB Conc 33.3 g/dL (31.6-35.5); Mean Corpuscular Hemoglobin 28.5 pg (28.0-33.3); Mean Corpuscular Volume 85.4 fL (83.0-100.0); Mean Platelet Volume 10.6 fL (9.4-12.4); Monocytes # 0.3 K/mcL (0.0-1.3); Monocytes % 7.3 %; Neutrophils # 2.2 K/mcL (1.6-8.9); Platelet Count 177 K/mcL (140-400); Segmented Neutrophils % 57.8 %
[2016-05-30] MEDS: 0.9 % Sodium Chloride 1,000 ML IVC SCH (07:55)
[2016-05-30 08:51] LABS: Platelet Estimate Normal (Normal)
[2016-05-30 11:18] VITALS: BP 147/90
--- NOTE | 2016-05-30 11:32 | Discharge Summary ---
Date of Encounter: 05/30/16 Time of Encounter: 09:30 - Discharge Diagnosis (1) Overdose Priority: Primary Status: Acute Qualifiers: Encounter type: subsequent encounter Injury intent: accidental or unintentional Qualified Code(s): T50.901D - Poisoning by unspecified drugs, medicaments and biological substances, accidental (unintentional), subsequent encounter (2) Toxic encephalopathy Priority: Primary Status: Acute (3) Opiate dependence Priority: Secondary Status: Chronic Qualifiers: Substance use status: with intoxication Complication of substance-induced condition: with delirium Qualified Code(s): F11.221 - Opioid dependence with intoxication delirium (4) Hepatitis C Priority: Secondary Status: Chronic Qualifiers: Viral hepatitis chronicity: chronic Hepatic coma status: without hepatic coma Qualified Code(s): B18.2 - Chronic viral hepatitis C (5) Substance abuse Priority: Secondary Status: Chronic - Discharge Medications Home Medications: Famotidine [Pepcid] 20 mg PO BID 05/28/16 [History] Prazosin HCl [Minipress] 2 mg PO HS 05/28/16 [History] Quetiapine Fumarate [Seroquel] 400 mg PO HS 05/28/16 [History] Allergies/Adverse Reactions: Allergies No Known Allergies Allergy (Verified 11/12/14 21:47) Date of admission: 05/28/16 04:52 Primary care physician: PCP JENN Discharging clinician: Guillermina Ramirez date of discharge: 05/30/16 - Patient Status Disposition: Transfer Inpatient Rehab Fac Condition: Fair Functional capacity at discharge: independent ambulation Overall status at discharge: patient is progressing back to baseline - Discharge Instructions Instructions: Narcotic Abuse (GEN) Follow Up With: NO,PCP [Primary Care Provider] - Additional Instructions: F/up with PCP in 2-3 weeks - Diet and Activity Activity: as per physical therapy Diet: advance to your usual diet, low fat, low cholesterol Hospital course: Ms. Rubi is a 41 year old female with history of polysubstance abuse, anxiety and depression, who was admitted with altered mental status and drug overdose. Urine drug screen was positive for benzodiazepines and cocaine. Initial labs done in the emergency room showed slightly elevated liver enzymes. She was started on IV hydration and supportive care. Her mental status gradually improved and she is able to tolerate oral diet. guidance services coordinator evaluation was done and patient is being discharged to [facility]. Her labs have improved, she remains hemodynamically stable and is medically stable for discharge today. - Time Spent with Patient Total time spent providing and/or coordinating discharge services: Greater than 30 minutes (45 min) - Constitutional Vitals: Temp Pulse Resp BP Pulse Ox 98.3 F 48 16 147/90 98 05/30/16 11:17 05/30/16 11:17 05/30/16 11:17 05/30/16 11:17 05/30/16 11:17 General appearance: Present: disheveled, A&O X 2 (keeps eyes closed but able to answer appropriately), no acute distress. Absent: answers questions appropriately - Respiratory Respiratory exam: Present: CTAB. Absent: accessory muscle use, rales, rhonchi, wheezes - Cardiovascular Cardiovascular exam: Present: RRR, +S1, +S2. Absent: diastolic murmur, gallop, rubs, systolic murmur
--- NOTE | 2016-05-30 11:35 | Physician Discharge Referral ---
ExtendedCare Referral Info Transfer To: [facility] Provider in Charge: Guillermina Montelongo Provider in Charge after Transfer: PCP Institutional Level of Care: Intermediate - - Diagnosis (1) Overdose Priority: Primary Status: Acute (2) Toxic encephalopathy Priority: Primary Status: Acute (3) Opiate dependence Priority: Secondary Status: Chronic (4) Hepatitis C Priority: Secondary Status: Chronic (5) Substance abuse Priority: Secondary Status: Chronic Expected Duration of Placement: 3 weeks Prognosis: Fair Aware of Diagnosis: Patient - Transfer Medications Home Medications: Famotidine [Pepcid] 20 mg PO BID 05/28/16 [History] Prazosin HCl [Minipress] 2 mg PO HS 05/28/16 [History] Quetiapine Fumarate [Seroquel] 400 mg PO HS 05/28/16 [History] Allergies/Adverse Reactions: Allergies No Known Allergies Allergy (Verified 11/12/14 21:47) - Respiratory Orders Smoking Cessation: Smoking cessation has been advised. For more information, call the [employer] Tobacco Quit Line at 4-542-ZGXP-NOW. - Advance Directives Code Status: Full Code - Mobility Orders Ambulate - Rehabiliation Orders Rehab Potential: Good Rehab Orders: ROM Exercises, Evaluation for Physical Therapy - Diet Orders Cardiac CERTIFICATION: I certify that the transfer of the above named patient to an Extended Care Facility is necessary for the continuing treatment of the diagnosis listed. The above information is true and accurate reflection of patient's current condition. Confidential - Redisclosure prohibited without a patient's written consent.
== END 2016-05-30 16:28 ==
LOC: ICNU 00:35 → EMEROO 00:35 → SUATTDRO 04:52 → MERGE 04:52 → ICNU 05:35 → 2NNU 19:09
PROVIDERS: ADMIT Internal Medicine; ATTEND Internal Medicine

== ENCOUNTER 2016-11-29 14:37 | Observation (INO) ==
[2016-11-29] MEDS ORDERED: Naloxone 0.4 MG/ML INJ IM ONE (14:41)
[2016-11-29] MEDS ORDERED: Ondansetron 4 MG/2 ML VIAL IM ONE (14:41)
--- NOTE | 2016-11-29 14:57 | Emergency Department Note ---
Overdose - Lab Data Lab results reviewed: Yes I reviewed the patient's lab results. Result diagrams: 11/29/16 15:49 11/29/16 15:49 Lab Results 11/29/16 11/29/16 11/29/16 Range/Units 15:49 15:49 15:49 WBC 10.0 (4.3-11.1) K/mcL RBC 4.22 (3.82-4.97) M/mcL Hgb 12.5 (11.5-15.4) g/dL Hct 36.4 (35.3-44.9) % MCV 86.3 (83.0-100.0) fL MCH 29.6 (28.0-33.3) pg MCHC 34.3 (31.6-35.5) g/dL RDW 12.4 (11.5-14.5) % Plt Count 299 (140-400) K/mcL MPV 10.2 (9.4-12.4) fL Immature Gran % 0.4 (0-4) % Seg Neutrophils % 76.9 % Lymphocytes % 16.7 % Monocytes % 4.9 % Eosinophils % 0.8 % Basophils % 0.3 % Neutrophils # 7.7 (1.6-8.9) K/mcL Lymphocytes # 1.7 (0.6-4.6) K/mcL Monocytes # 0.5 (0.0-1.3) K/mcL Eosinophils # 0.1 (0.0-0.6) K/mcL Basophils # 0.0 (0.0-0.2) K/mcL Sodium 137 (136-145) mEq/L Potassium 3.9 (3.5-4.5) mEq/L Chloride 104 (98-109) mEq/L Carbon Dioxide 23 (19-29) mEq/L BUN 10 (7-20) mg/dL Creatinine 0.85 (0.57-1.11) mg/dL Est GFR ( Amer) > 60 (> 60) Est GFR (Non-Af Amer) > 60 (> 60) BUN/Creatinine Ratio 12 (6-26) Glucose 90 (70-99) mg/dL Calculated Osmolality 283 (280-300) Lactic Acid (0.5-2.2) mmol/L Calcium 9.5 (8.6-10.8) mg/dL Total Bilirubin 0.6 (0.2-1.2) mg/dL Direct Bilirubin 0.3 (0.0-0.5) mg/dL Indirect Bilirubin 0.3 (0.0-1.2) mg/dL AST 48 H (5-34) Units/L ALT 57 H (0-55) Units/L Alkaline Phosphatase 136 H (38-126) Units/L Creatine Kinase 56 (29-168) Units/L Troponin I (0-0.03) ng/mL Serum Total Protein 7.6 (6.0-8.3) g/dL Albumin 3.8 (3.5-5.0) g/dL Globulin 3.8 H (2.4-3.5) g/dL Albumin/Globulin Ratio 1.0 L (1.1-2.2) Serum , Qual Negative (Negative) Urine Color (Yellow) Urine Clarity (Clear) Urine pH (5.0-8.0) pH Units Ur Specific Cool (1.010-1.025) Urine Protein (Neg-Trace) mg/dL Urine Glucose (UA) (Normal) mg/dL Urine Ketones (Negative) mg/dL Urine Blood (Negative) Urine Nitrite (Negative) Urine Bilirubin (Negative) Urine Urobilinogen (Normal) mg/dL Ur Leukocyte Esterase (Negative) Salicylates < 5.0 L (15-30) mg/dL Urine Opiates Screen (Jfjqvt=228) ng/mL Acetaminophen < 1.0 L (10-30) mcg/mL Ur Barbiturates Screen (Ffcjvw=662) ng/mL Ur Phencyclidine Scrn (Cutoff=25) ng/mL Ur Amphetamines Screen (Qtemol=9684) ng/mL U Benzodiazepines Scrn (Lzqkci=869) ng/mL Urine Cocaine Screen (Cutoff= 300) ng/mL U Marijuana (THC) Screen (Cutoff = 50) ng/mL Ethyl Alcohol < 10 (0-10) mg/dL 11/29/16 11/29/16 11/29/16 Range/Units 15:49 15:49 16:14 WBC (4.3-11.1) K/mcL RBC (3.82-4.97) M/mcL Hgb (11.5-15.4) g/dL Hct (35.3-44.9) % MCV (83.0-100.0) fL MCH (28.0-33.3) pg MCHC (31.6-35.5) g/dL RDW (11.5-14.5) % Plt Count (140-400) K/mcL MPV (9.4-12.4) fL Immature Gran % (0-4) % Seg Neutrophils % % Lymphocytes % % Monocytes % % Eosinophils % % Basophils % % Neutrophils # (1.6-8.9) K/mcL Lymphocytes # (0.6-4.6) K/mcL Monocytes # (0.0-1.3) K/mcL Eosinophils # (0.0-0.6) K/mcL Basophils # (0.0-0.2) K/mcL Sodium (136-145) mEq/L Potassium (3.5-4.5) mEq/L Chloride (98-109) mEq/L Carbon Dioxide (19-29) mEq/L BUN (7-20) mg/dL Creatinine (0.57-1.11) mg/dL Est GFR ( Amer) (> 60) Est GFR (Non-Af Amer) (> 60) BUN/Creatinine Ratio (6-26) Glucose (70-99) mg/dL Calculated Osmolality (280-300) Lactic Acid 2.8 H (0.5-2.2) mmol/L Calcium (8.6-10.8) mg/dL Total Bilirubin (0.2-1.2) mg/dL Direct Bilirubin (0.0-0.5) mg/dL Indirect Bilirubin (0.0-1.2) mg/dL AST (5-34) Units/L ALT (0-55) Units/L Alkaline Phosphatase (38-126) Units/L Creatine Kinase (29-168) Units/L Troponin I 0.00 (0-0.03) ng/mL Serum Total Protein (6.0-8.3) g/dL Albumin (3.5-5.0) g/dL Globulin (2.4-3.5) g/dL Albumin/Globulin Ratio (1.1-2.2) Serum , Qual (Negative) Urine Color Yellow (Yellow) Urine Clarity Clear (Clear) Urine pH 8.5 H (5.0-8.0) pH Units Ur Specific Cool 1.013 (1.010-1.025) Urine Protein Negative (Neg-Trace) mg/dL Urine Glucose (UA) Normal (Normal) mg/dL Urine Ketones Negative (Negative) mg/dL Urine Blood Negative (Negative) Urine Nitrite Negative (Negative) Urine Bilirubin Negative (Negative) Urine Urobilinogen Normal (Normal) mg/dL Ur Leukocyte Esterase Negative (Negative) Salicylates (15-30) mg/dL Urine Opiates Screen (Uirwom=403) ng/mL Acetaminophen (10-30) mcg/mL Ur Barbiturates Screen (Ncywho=731) ng/mL Ur Phencyclidine Scrn (Cutoff=25) ng/mL Ur Amphetamines Screen (Jqbfxg=1031) ng/mL U Benzodiazepines Scrn (Lwbxyx=576) ng/mL Urine Cocaine Screen (Cutoff= 300) ng/mL U Marijuana (THC) Screen (Cutoff = 50) ng/mL Ethyl Alcohol (0-10) mg/dL 11/29/16 Range/Units 16:14 WBC (4.3-11.1) K/mcL RBC (3.82-4.97) M/mcL Hgb (11.5-15.4) g/dL Hct (35.3-44.9) % MCV (83.0-100.0) fL MCH (28.0-33.3) pg MCHC (31.6-35.5) g/dL RDW (11.5-14.5) % Plt Count (140-400) K/mcL MPV (9.4-12.4) fL Immature Gran % (0-4) % Seg Neutrophils % % Lymphocytes % % Monocytes % % Eosinophils % % Basophils % % Neutrophils # (1.6-8.9) K/mcL Lymphocytes # (0.6-4.6) K/mcL Monocytes # (0.0-1.3) K/mcL Eosinophils # (0.0-0.6) K/mcL Basophils # (0.0-0.2) K/mcL Sodium (136-145) mEq/L Potassium (3.5-4.5) mEq/L Chloride (98-109) mEq/L Carbon Dioxide (19-29) mEq/L BUN (7-20) mg/dL Creatinine (0.57-1.11) mg/dL Est GFR ( Amer) (> 60) Est GFR (Non-Af Amer) (> 60) BUN/Creatinine Ratio (6-26) Glucose (70-99) mg/dL Calculated Osmolality (280-300) Lactic Acid (0.5-2.2) mmol/L Calcium (8.6-10.8) mg/dL Total Bilirubin (0.2-1.2) mg/dL Direct Bilirubin (0.0-0.5) mg/dL Indirect Bilirubin (0.0-1.2) mg/dL AST (5-34) Units/L ALT (0-55) Units/L Alkaline Phosphatase (38-126) Units/L Creatine Kinase (29-168) Units/L Troponin I (0-0.03) ng/mL Serum Total Protein (6.0-8.3) g/dL Albumin (3.5-5.0) g/dL Globulin (2.4-3.5) g/dL Albumin/Globulin Ratio (1.1-2.2) Serum , Qual (Negative) Urine Color (Yellow) Urine Clarity (Clear) Urine pH (5.0-8.0) pH Units Ur Specific Cool (1.010-1.025) Urine Protein (Neg-Trace) mg/dL Urine Glucose (UA) (Normal) mg/dL Urine Ketones (Negative) mg/dL Urine Blood (Negative) Urine Nitrite (Negative) Urine Bilirubin (Negative) Urine Urobilinogen (Normal) mg/dL Ur Leukocyte Esterase (Negative) Salicylates (15-30) mg/dL Urine Opiates Screen Negative (Egpqnt=461) ng/mL Acetaminophen (10-30) mcg/mL Ur Barbiturates Screen Negative (Pacnpc=732) ng/mL Ur Phencyclidine Scrn Negative (Cutoff=25) ng/mL Ur Amphetamines Screen Negative (Offqcy=8961) ng/mL U Benzodiazepines Scrn Negative (Zrjziq=365) ng/mL Urine Cocaine Screen Positive H (Cutoff= 300) ng/mL U Marijuana (THC) Screen Negative (Cutoff = 50) ng/mL Ethyl Alcohol (0-10) mg/dL - Radiology Data Radiology results reviewed: Yes I reviewed the patient's radiology results. Chest X-Ray 11/29/16 14:54 IMPRESSION: Negative portable study. D/ / Carlyn Natarajan Cha, MD / Carlyn Natarajan Cha, MD Interpreting Provider: Carlyn Natarajan Cha, MD Head CT 11/29/16 15:39 IMPRESSION: No acute intracranial abnormality. D/ / Tristin Brooks MD / Tristin Brooks MD Interpreting Provider: Tristin Brooks MD - EKG Data EKG attestation: Yes I reviewed and interpreted this EKG. EKG shows normal: sinus rhythm Rate: normal Rhythm: NSR Garrett/QRS: normal Interpretation: no acute changes Overdose HPI - General Chief Complaint: ED Overdose Stated Complaint: Heroin OD Time Seen by Provider: 11/29/16 14:40 Source: EMS Mode of arrival: EMS Limitations: altered mental status Nursing Notes Reviewed: Yes Vital Signs Reviewed: Yes - History of Present Illness HPI Narrative: 41-year-old who presents with spontaneous respirations who apparently was found by the police with a possible overdose patient was given Narcan per Buddy and had improvement in her mental status on arrival she is somnolent will arrive arouse to painful stimuli. Sent according to Buddy is a known heroin user. Pt Subjective Complaint: accidental overdose Onset (ago): Just [place] Intent: accidental How Overdose Was Discovered: called 911 Associated symptoms: other (Nausea) Treatments Prior to Arrival: other (Narcan) - Related Data Home Medications Medication Instructions Recorded Confirmed Famotidine [Pepcid] 20 mg PO BID 05/28/16 05/28/16 Prazosin HCl [Minipress] 2 mg PO HS 05/28/16 05/28/16 Quetiapine Fumarate [Seroquel] 400 mg PO HS 05/28/16 05/28/16 Allergies Allergy/AdvReac Type Severity Reaction Status Date / Time No Known Allergies Allergy Verified 11/12/14 21:47 Limitations: ROS unobtainable due to patients medical condition Past Medical History - Past Medical History Medical history: Reports: liver disease, other Surgical history: Reports: hysterectomy Psychiatric history: Reports: previous psychiatric hospitalization, other, anxiety, bipolar, prior suicide attempt - Social History Smoking Status: Former smoker Smokeless Tobacco Status: No Alcohol use: Reports: unknown Drug use: Reports: IV Drug Use Physical Exam - General Limitations: altered mental status General appearance: lethargic - Head Head exam: atraumatic, normocephalic, normal inspection - Eye Eye exam: Present: other (Intact corneal reflex) - Neck Neck exam: Present: normal inspection, full ROM, trachea midline - Chest Chest inspection: Present: normal inspection, symmetric chest wall rise - Respiratory Respiratory exam: Present: normal lung sounds bilaterally - Cardiovascular Cardiovascular exam: Present: regular rate, normal rhythm, normal heart sounds - Abdominal Exam Abdominal exam: Present: soft, Non-Tender. Absent: tenderness, distention, guarding, rebound, rigidity - Extremities Exam Extremities exam: Present: other ( tracks mohan on her arms bilaterally) - Expanded Lower Extremity Exam Neurovascular/Tendon exam: Present: normal capillary refill. Absent: pulse deficit, motor deficit Gait: not tested/not observed - Back Exam Back exam: Present: normal inspection, full ROM. Absent: tenderness - Neurological Exam Neurological exam: Present: alert, oriented X3 - Skin Skin exam: Present: warm, dry, intact, normal color Course - Reevaluation(s) Reevaluation #1: 41-year-old who thought she was injecting heroin was found unresponsive at a known crack house. Patient was given Narcan with some improvement in her responsiveness. On arrival here she had an episode of hypoxia which eventually responded to Narcan which aborted and intubation attempt. Patient had generalized tonic-clonic movement but was awake. On the monitor there is questionable run of ventricular ectopy versus artifact. Patient did complain of chest pain also. Tox screen was positive for cocaine. Tox screen was negative for opiates. Consideration for synthetic narcotic such as fentanyl. Light of her chest pain and cocaine injection were going to ahead and admit her. Time: 17:32 - Consultations Consultation #1: Discussed with Ryan Bazzi, admit Time: 17:32 Vital Signs Temperature 98.2 F 11/29/16 14:39 Pulse Rate 82 11/29/16 14:39 Respiratory Rate 22 11/29/16 14:39 Blood Pressure 111/74 11/29/16 14:39 O2 Sat by Pulse Oximetry 100 11/29/16 14:39 Temperature 98.2 F 11/29/16 14:39 Pulse Rate 83 11/29/16 16:45 Respiratory Rate 22 11/29/16 16:45 Blood Pressure 112/67 11/29/16 16:45 O2 Sat by Pulse Oximetry 100 11/29/16 16:45 Oxygen Delivery Oxygen Delivery Nasal Cannula Disposition Clinical Impression: Accidental drug ingestion Qualifiers: Encounter type: initial encounter Qualified Code(s): T50.901A - Poisoning by unspecified drugs, medicaments and biological substances, accidental ( unintentional), initial encounter Chest pain Qualifiers: Chest pain type: unspecified Qualified Code(s): R07.9 - Chest pain, unspecified Disposition: Admitted As Inpatient Condition: Fair Referrals: NONE,PCP [Primary Care Provider] - Forms: ED Satisfaction Letter Time of Disposition: 17:35
[2016-11-29 16:00] LABS: Basophils % 0.3 %; Eosinophils # 0.1 K/mcL (0.0-0.6); Eosinophils % 0.8 %; Hematocrit 36.4 % (35.3-44.9); Hemoglobin 12.5 g/dL (11.5-15.4); Immature Granulocytes % 0.4 % (0-4); Lymphocytes # 1.7 K/mcL (0.6-4.6); Lymphocytes % 16.7 %; Mean Corpuscular HGB Conc 34.3 g/dL (31.6-35.5); Mean Corpuscular Hemoglobin 29.6 pg (28.0-33.3); Mean Corpuscular Volume 86.3 fL (83.0-100.0); Mean Platelet Volume 10.2 fL (9.4-12.4); Monocytes # 0.5 K/mcL (0.0-1.3); Monocytes % 4.9 %; Neutrophils # 7.7 K/mcL (1.6-8.9); Platelet Count 299 K/mcL (140-400); Red Blood Count 4.22 M/mcL (3.82-4.97); Red Cell Distribution Width 12.4 % (11.5-14.5); Segmented Neutrophils % 76.9 %
[2016-11-29 16:15] LABS: Alanine Aminotransferase 57 Units/L (0-55); Albumin 3.8 g/dL (3.5-5.0); Alkaline Phosphatase 136 Units/L (38-126); Aspartate Amino Transferase 48 Units/L (5-34); BUN/Creatinine Ratio 12 (6-26); Bilirubin,Direct 0.3 mg/dL (0.0-0.5); Bilirubin,Indirect 0.3 mg/dL (0.0-1.2); Bilirubin,Total 0.6 mg/dL (0.2-1.2); Blood Urea Nitrogen 10 mg/dL (7-20); Calcium 9.5 mg/dL (8.6-10.8); Carbon Dioxide 23 mEq/L (19-29); Chloride 104 mEq/L (98-109); Creatine Kinase 56 Units/L (29-168); Globulin 3.8 g/dL (2.4-3.5); Glucose 90 mg/dL (70-99); Osmolality,Calculated 283 (280-300); Potassium 3.9 mEq/L (3.5-4.5); Sodium 137 mEq/L (136-145); Total Protein 7.6 g/dL (6.0-8.3); eGFR For African Americans > 60 (> 60); eGFR For Non-African Americans > 60 (> 60)
[2016-11-29 16:16] LABS: Acetaminophen < 1.0 mcg/mL (10-30); Ethanol < 10 mg/dL (0-10); Salicylate < 5.0 mg/dL (15-30)
[2016-11-29 16:23] LABS: Bilirubin,Urine Negative (Negative); Blood,Urine Negative (Negative); Color,Urine Yellow (Yellow); Glucose,Urine (UA) Normal (Normal); Ketones,Urine Negative (Negative); Leukocyte Esterase,Urine Negative (Negative); Nitrite,Urine Negative (Negative); PH,Urine 8.5 pH Units (5.0-8.0); Protein,Urine Negative (Neg-Trace); Specific Gravity,Urine 1.013 (1.010-1.025); Urobilinogen,Urine Normal (Normal)
[2016-11-29 16:26] LABS: Clarity,Urine Clear (Clear)
[2016-11-29 16:31] LABS: Amphetamine Screen,Urine Negative ng/mL (Cutoff=1000); Barbiturate Screen,Urine Negative ng/mL (Cutoff=200); Benzodiazepines Screen,Urine Negative ng/mL (Cutoff=200); Cannabinoid Screen,Urine Negative ng/mL (Cutoff = 50); Cocaine Screen,Urine Positive ng/mL (Cutoff= 300); Opiate Screen,Urine Negative ng/mL (Cutoff=300); Phencyclidine Screen,Urine Negative ng/mL (Cutoff=25)
[2016-11-29] MEDS ORDERED: Ondansetron 4 MG/2 ML VIAL IVP ONE (17:58)
[2016-11-29] MEDS ORDERED: Ondansetron 4 MG/2 ML VIAL ONE (18:01)
[2016-11-29] MEDS ORDERED: 0.9 % Sodium Chloride 1,000 ML IVC ONE (19:18)
[2016-11-29] MEDS ORDERED: Naloxone 0.4 MG/ML INJ IVP PRN ×2 (19:42→21:20)
--- NOTE | 2016-11-29 19:56 | Internal Med History&Physical ---
Date of Encounter: 11/29/16 Time of Encounter: 19:49 Assessment and Plan (1) Accidental overdose Current visit: Yes Status: Acute Was initially found unresponsive and hypoxic. She thought she was taking heroin but no opiates found in her system, Urine tox only finding cocaine. She may have had synthetic opiates and cocaine. Given 2 doses of Narcan and hypoxia improved as well as mental status. He remains alert,and on room air no distress and hemodynamically stable. She denies any intent for self harm. Continuous telemetry and continuous SPO2 monitoring, respiratory port as needed CBC and BMP in the morning Offered SS support but she denied it Narcan on APR in case of urgent need Qualifiers: Encounter type: initial encounter Qualified Code(s): T50.901A - Poisoning by unspecified drugs, medicaments and biological substances, accidental ( unintentional), initial encounter (2) Accidental drug ingestion Current visit: Yes Status: Acute Accidental ingestion of cocaine. Reports that she was attempting to ingest heroin. Denies any suicidal intent. See plan above Qualifiers: Encounter type: initial encounter Qualified Code(s): T50.901A - Poisoning by unspecified drugs, medicaments and biological substances, accidental ( unintentional), initial encounter (3) Chest pain Current visit: Yes Status: Acute Continues to endorse CP s/p accidental overdose this afternoon. Troponin negative, does not appear to be in any distress, EKG normal in ED, but the ED physician reported some possible V-tach in the presence of tonic-clonic activity. I do not really believe this was V. tach as it was likely motion artifact however continue to monitor. Will get serial troponins for further monitoring. Qualifiers: Chest pain type: unspecified Qualified Code(s): R07.9 - Chest pain, unspecified (4) Hepatitis C Current visit: Yes Status: Chronic Reporting chronic hepatitis C. Has never received treatment. Does not wish to receive treatment at this time. Qualifiers: Viral hepatitis chronicity: chronic Hepatic coma status: without hepatic coma Qualified Code(s): B18.2 - Chronic viral hepatitis C (5) Opiate dependence Current visit: Yes Status: Chronic Admits to heroin abuse. Denies any needs for clinical social work aide, does not wish to get help at this time. Qualifiers: Substance use status: with intoxication Complication of substance-induced condition: with delirium Qualified Code(s): F11.221 - Opioid dependence with intoxication delirium (6) DVT prophylaxis Current visit: Yes Status: Acute Lovenox 40 mg subcutaneous daily Internal Medicine - H&P: HPI Chief complaint: OVERDOSE Admitted From: Home Plans for Post Hospital Care: Home History of present illness: Ms. Rubi is a 41 year old female with a PMH of hepatitis C. Presents today to [facility] unresponsive. The patient likely overdosed on synthetic opiates and cocaine. She reports that she thought she is injecting heroin, she began having chest pain after that she blacked out and does not remember what happened. EMS was called she was unresponsive upon arrival to the scene. They delivered one dose of Narcan en route to the emergency department. Upon arrival to the ED the patient remained unresponsive and hypoxic. The ED was contemplating intubation but Additional dose of Narcan was given and she became more responsive and hypoxia improved. The patient denies any recollection of today's events. Urine tox screen positive for cocaine. She does endorse chest pain and shortness of breath but does not increase with exertion. Past Med Surg Social Fam HX - Past Medical History Medical history: liver disease, other Psychiatric history: previous psychiatric hospitalization, other, anxiety, bipolar, prior suicide attempt - Past Surgical History Surgical History: hysterectomy - Social History Smoking Status: Former smoker Smokeless Tobacco Status: No Alcohol use: unknown Drug use: IV Drug Use - Family History Mother Living Status: Still Living Hx Family Cardiac Disorders: Yes (past MIs) Hx Family Respiratory Disorders: Yes Hx Family Cancer: No Hx Family GI Disorders: No Hx Family Endocrine Disorder: No Hx Family Neuromuscular Disorders: No Hx Family Neurologic Disorders: No Hx Family HEENT Disorders: No Hx Family Autoimmune Disorders: No Father Living Status: Hx Family Cancer: Yes (primary unknown, mets to brain) Internal Medicine - H&P: Meds Famotidine [Pepcid] 20 mg PO BID 05/28/16 [History] Prazosin HCl [Minipress] 2 mg PO HS 05/28/16 [History] Quetiapine Fumarate [Seroquel] 400 mg PO HS 05/28/16 [History] 3 Allergy/AdvReac Type Severity Reaction Status Date / Time No Known Allergies Allergy Verified 11/12/14 21:47 All Systems PM: A 10-system review of systems was performed and is negative for pertinent findings except as documented above in the HPI. - Constitutional Constitutional: no chills, no fatigue, no fever(s), no lethargy, no weakness - Cardiovascular Cardiovascular ROS IM: as per HPI, chest pain, dyspnea, irregular heart rhythm, no diaphoresis, no dyspnea on exertion, no edema, no lightheadedness, no palpitations, no syncope, no other - Respiratory Respiratory: no cough, no wheezing, no pain on inspiration, no chest congestion , no excessive phlegm production - Gastrointestinal Gastrointestinal: no abdominal pain, no diarrhea, no hematemesis, no hematochezia, no melena, no nausea, no vomiting - Genitourinary Genitourinary: no change in urinary stream, no dysuria, no flank pain, no hematuria - Musculoskeletal Musculoskeletal ROS IM: no numbness, no tingling - Integumentary Integumentary IM: no rash, no unusual bruising - Constitutional Vitals: Temp Pulse Resp BP Pulse Ox 98.4 F 83 16 114/68 100 11/29/16 18:40 11/29/16 18:40 11/29/16 18:40 11/29/16 18:40 11/29/16 18:40 General appearance: Present: cooperative, A&O X 3, no acute distress, answers questions appropriately - Head Head exam: Present: atraumatic, normocephalic - Eye Eye exam: Present: PERRL, conjuntiva pink, sclera anicteric Pupils: Present: PERRL - Neck Neck exam general surgery: Present: supple, trachea midline. Absent: lymphadenopathy - Respiratory Respiratory exam: Present: CTAB. Absent: accessory muscle use, rales, rhonchi, wheezes - Cardiovascular Cardiovascular exam: Present: RRR, +S1, +S2. Absent: diastolic murmur, gallop, rubs, systolic murmur - GI/Abdominal GI/Abdominal exam: Present: normal bowel sounds, soft, no peritoneal signs. Absent: distended, tenderness - Extremities Exam Extremities exam: Present: warm, radial pulses palpable and symmetrical. Absent : calf tenderness, cyanotic, pedal edema - Neurological Exam Neurological exam: Present: CN II-XII intact, oriented X3, no focal deficits. Absent: pronater drift, facial droop, speech deficit - Skin Skin exam: Present: dry, intact Internal Med - H&P Results - Labs CBC & Chem 7: 11/29/16 15:49 10/22/17 15:49 - EKG Data -: EKG Interpreted by Myself EKG shows normal: sinus rhythm - EKG Data Prior EKG available for review: no Interpretation IM: normal EKG - Diagnostic Studies CT scan - head Status: image reviewed by me Additional comments: Negative for acute intracranial abdomen mellitus Chest x-ray Status: image reviewed by me Additional comments: Negative for acute pulmonary process
[2016-11-29] MEDS: Famotidine 20 MG TABLET PO SCH (20:08)
--- NOTE | 2016-11-29 20:49 | Event Note ---
Date of Encounter: 11/29/16 Time of Encounter: 20:46 Patients and examined with nurse practitioner. Heroin overdose. Respiratory status and level of alertness improved with 2 doses of Narcan. She was sleepy during my interview but arousable easily. No clinical signs of aspiration. Will hydrate the patient. NPO. Psychiatry evaluation. Reportedly she had either ventricular activities versus artifacts in the emergency room would keep the patient on telemetry monitoring as she has also admitted to cocaine use today and we will check serial troponin.
[2016-11-29] MEDS: D5% in 0.9% NACL 1,000 ML IVC SCH (21:20)
[2016-11-30] MEDS ORDERED: 0.9 % Sodium Chloride 500 ML IVC ONE ×2 (02:51→04:11)
[2016-11-30 04:12] LABS: Basophils % 0.4 %; Eosinophils # 0.1 K/mcL (0.0-0.6); Eosinophils % 2.2 %; Hematocrit 31.8 % (35.3-44.9); Immature Granulocytes % 0.2 % (0-4); Lymphocytes # 1.6 K/mcL (0.6-4.6); Lymphocytes % 35.2 %; Mean Corpuscular HGB Conc 32.4 g/dL (31.6-35.5); Mean Corpuscular Hemoglobin 28.8 pg (28.0-33.3); Mean Corpuscular Volume 88.8 fL (83.0-100.0); Mean Platelet Volume 10.7 fL (9.4-12.4); Monocytes # 0.2 K/mcL (0.0-1.3); Monocytes % 4.6 %; Neutrophils # 2.6 K/mcL (1.6-8.9); Platelet Count 203 K/mcL (140-400); Red Blood Count 3.58 M/mcL (3.82-4.97); Red Cell Distribution Width 12.8 % (11.5-14.5); Segmented Neutrophils % 57.4 %
[2016-11-30 04:28] LABS: Hemoglobin 10.3 g/dL (11.5-15.4)
[2016-11-30 04:40] LABS: BUN/Creatinine Ratio 9 (6-26); Blood Urea Nitrogen 7 mg/dL (7-20); Carbon Dioxide 26 mEq/L (19-29); Chloride 109 mEq/L (98-109); Glucose 101 mg/dL (70-99); Osmolality,Calculated 290 (280-300); Potassium 3.4 mEq/L (3.5-4.5); Sodium 141 mEq/L (136-145); eGFR For African Americans > 60 (> 60); eGFR For Non-African Americans > 60 (> 60)
[2016-11-30 04:41] LABS: Calcium 7.9 mg/dL (8.6-10.8)
[2016-11-30] MEDS ORDERED: *HR* Enoxaparin 40 MG/0.4 ML SYRINGE SQ SCH (06:00)
[2016-11-30] MEDS: D5% in 0.9% NACL 1,000 ML IVC SCH (06:51)
[2016-11-30] MEDS: Famotidine 20 MG TABLET PO SCH ×2 (08:54→21:46)
[2016-11-30] MEDS: Aspirin Enteric Coated 325 MG Tablet PO SCH (08:55)
[2016-11-30] MEDS ORDERED: Ibuprofen 400 MG TABLET PO PRN (12:41)
--- NOTE | 2016-11-30 14:03 | Electrocardiograph Report ---
[place] [id number] Test Date: 2016-11-29 Pat Name: Marion Rubi Department: 103 Room: 3B Gender: F Distribution Designer: MARIELA : 1975 Requested By: Jose Guadalupe Canales Order Number: [id number] Reading MD: Aliza Carroll Measurements Intervals Steward Rate: 78 P: 36 DC: 135 QRS: 37 QRSD: 88 T: 34 QT: 443 QTc: 476 Interpretive Statements SINUS RHYTHM PROLONGED QT INTERVAL Electronically Signed On 11-30-2016 14:01:56 EDT by Aliza Carroll
--- NOTE | 2016-11-30 16:49 | Internal Med Progress Note ---
Date of Encounter: 11/30/16 Time of Encounter: 13:00 - Assessment and plan (1) Accidental overdose Current Visit: Yes Status: Acute Assessment and plan: Jennifer Rubi is a 41-year-old female with past medical history depression, hepatitis C and polysubstance abuse who found unresponsive on 11/29/2016 after injecting but was thought to be here when. He was given Narcan in the field and was brought to [facility] for further workup and treatment. 1. Accidental drug overdose: Admits to using IV heroin daily. UDS positive for cocaine. Cessation strongly advised. Add PRN tramadol for opiate withdrawal symptoms. Benadryl PRN for sleep. Monitor for withdrawal symptoms. 2. Elevated lactic acid: Lactic acid 2.4, in the setting of overdose; suspect reactive. Received multiple IV boluses and ED. Continue IV fluids, check repeat lactic acid. 3. Atypical chest pain: suspect musculoskeletal as pain is reproducible with light palpation on exam. Patient was found unresponsive and likely fell and required sternal rub. Serial troponins negative. EKG without acute ST changes. Check echo, if unremarkable no further workup needed. NSAIDs for pain. Would avoid opiates with polysubstance abuse history. 4. Hepatitis C: LFTs minimally elevated. Likely active secondary to overdose. Monitor repeat LFTs 5. Major depression: Per history. Holding home Seroquel and prazosin with drowsiness. Resume as able. 6. DVT prophylaxis: Lovenox Qualifiers: Encounter type: initial encounter Qualified Code(s): T50.901A - Poisoning by unspecified drugs, medicaments and biological substances, accidental ( unintentional), initial encounter (2) Chest pain Current Visit: Yes Status: Acute Qualifiers: Chest pain type: unspecified Qualified Code(s): R07.9 - Chest pain, unspecified (3) Depression Current Visit: No Status: Acute Qualifiers: Depression Type: major depressive disorder Major depression recurrence: recurrent Active/Remission status: currently active Major depression episode severity: severe Psychotic features: without psychotic features Qualified Code(s): F33.2 - Major depressive disorder, recurrent severe without psychotic features - Subjective Interval history: Seen and examined at bedside. Patient is new to me, information obtained from chart review and patient report. Patient says she is weak and tired does not feel like she can go home today. He uses heroin on a daily basis and has gone through withdrawal before. She does not want to continue to use hair when she would like to stay inpatient for detox. Chest pain, no shortness of breath - Constitutional Vitals: Temp Pulse Resp BP Pulse Ox 98.6 F 65 13 103/66 100 11/30/16 11:00 11/30/16 11:00 11/30/16 11:00 11/30/16 11:00 11/30/16 11:00 General appearance: Present: cooperative, A&O X 3, no acute distress, answers questions appropriately - Head Head exam: Present: atraumatic, normocephalic - Eye Eye exam: Present: PERRL, conjuntiva pink, sclera anicteric Pupils: Present: PERRL - Neck Neck exam general surgery: Present: supple, trachea midline. Absent: lymphadenopathy - Respiratory Respiratory exam: Present: CTAB. Absent: accessory muscle use, rales, rhonchi, wheezes - Cardiovascular Cardiovascular exam: Present: RRR, +S1, +S2. Absent: diastolic murmur, gallop, rubs, systolic murmur - GI/Abdominal GI/Abdominal exam: Present: normal bowel sounds, soft, no peritoneal signs. Absent: distended, tenderness - Extremities Exam Extremities exam: Present: warm, radial pulses palpable and symmetrical. Absent : calf tenderness, cyanotic, pedal edema - Neurological Exam Neurological exam: Present: CN II-XII intact, oriented X3, no focal deficits. Absent: pronater drift, facial droop, speech deficit Additional comments: drowsy - Skin Skin exam: Present: dry, intact Internal Medicine: Result - Labs CBC & Chem 7: 11/30/16 02:51 11/30/16 02:51 Labs: Short CBC 11/30/16 Range/Units 02:51 WBC 4.5 D (4.3-11.1) K/mcL Hgb 10.3 L D (11.5-15.4) g/dL Hct 31.8 L (35.3-44.9) % Plt Count 203 (140-400) K/mcL Neutrophils # 2.6 (1.6-8.9) K/mcL BMP 11/30/16 02:51 Sodium 141 Potassium 3.4 L Chloride 109 Carbon Dioxide 26 BUN 7 Creatinine 0.74 Glucose 101 H Calcium 7.9 L D Cardiac Enzymes 11/29/16 11/30/16 11/30/16 Range/Units 20:18 02:51 08:54 Troponin I 0.00 0.00 0.00 (0-0.03) ng/mL Consult Discharge Plan - Plan Referrals: NONE,PCP [Primary Care Provider] -
[2016-11-30] MEDS ORDERED: 0.9 % Sodium Chloride 1,000 ML IVC ONE (16:54)
[2016-11-30] MEDS ORDERED: 0.9 % Sodium Chloride 1,000 ML ONE (16:56)
[2016-11-30] MEDS ORDERED: traMADol 50 MG TABLET PO PRN (17:05)
[2016-11-30] MEDS ORDERED: Ondansetron 4 MG/2 ML VIAL IVP PRN (18:10)
[2016-11-30] MEDS ORDERED: Ondansetron ODT 4 MG TAB.RAPDIS SL PRN (18:10)
[2016-12-01] MEDS ORDERED: *HR* Enoxaparin 40 MG/0.4 ML SYRINGE SQ SCH (06:00)
[2016-12-01 06:06] LABS: Bilirubin,Direct 0.3 mg/dL (0.0-0.5); Bilirubin,Indirect 0.3 mg/dL (0.0-1.2); Bilirubin,Total 0.6 mg/dL (0.2-1.2)
[2016-12-01] MEDS: Famotidine 20 MG TABLET PO SCH (08:53)
[2016-12-01] MEDS: Aspirin Enteric Coated 325 MG Tablet PO SCH (08:53)
[2016-12-01 15:21] VITALS: BP 108/74
--- NOTE | 2016-12-01 17:53 | Discharge Summary ---
Date of Encounter: 12/01/16 Time of Encounter: 09:40 - Discharge Diagnosis (1) Atypical chest pain Priority: Secondary Status: Acute Comments: Patient reports atypical chest pain status post accidental heroin overdose. Patient reports that pain is midsternal, she reports it as a tightness in midsternal area with movement or deep inspiration/cough. She does have a nonproductive cough. She denies fevers or chills, however she does say at times she becomes hot and sweaty for no apparent reason. Pain is recent producible with deep outpatient. Chest x-ray is negative for any acute processes. Labs are stable and within normal limits. She does not have any white count. She did have an elevated lactate, however does return to normal and was most likely just reactive. Patient's vital signs are stable and within normal limits. EKG in the emergency room showed sinus rhythm with rate of 78, UT interval 135, QRS duration 88. QTC 476. Echocardiogram shows LVEF of 50% with indeterminate diastolic function, LV size is upper limits of normal. There is mild MR. This is chest wall pain and unrelated to any cardiac etiology. Recommend follow-up with primary care and nonnarcotic analgesics, heat/ice as needed. (2) Depression Priority: Secondary Status: Chronic Comments: Chronic. Continue home medications. Patient denies suicidal or homicidal ideations and states that she has no plan to harm herself or anyone else. Qualifiers: Depression Type: major depressive disorder Major depression recurrence: recurrent Active/Remission status: currently active Major depression episode severity: severe Psychotic features: without psychotic features Qualified Code(s): F33.2 - Major depressive disorder, recurrent severe without psychotic features (3) Hepatitis C Priority: Secondary Status: Chronic Comments: Issue with known history. She states that she is to see a physician in [place] , however due to her lack of transportation and missing multiple appointments, she no longer sees him. She also has no primary care provider in [place] for the same reasons as listed above. We will attempt to get patient in the resident clinic. I discussed with her the importance of following up being reliable with her appointments. Qualifiers: Viral hepatitis chronicity: chronic Hepatic coma status: without hepatic coma Qualified Code(s): B18.2 - Chronic viral hepatitis C (4) Accidental overdose Priority: Secondary Status: Acute Comments: Patient admits to using heroin yesterday. She says she was not trying to kill herself and it was an accidental overdose. She reports that she has been speaking with an outside rn social services who is attempting to get her placed in a rehabilitation center. Patient states that she is not sure when she will have that available. She says that she is not in need of any assistance, and states that she is not going to relapse when she gets home. Qualifiers: Encounter type: initial encounter Qualified Code(s): T50.901A - Poisoning by unspecified drugs, medicaments and biological substances, accidental ( unintentional), initial encounter (5) DVT prophylaxis Priority: Secondary Status: Acute Comments: Lovenox subcutaneous. - Discharge Medications Prescriptions: Prazosin HCl [Minipress] 2 mg PO HS #7 capsule Home Medications: Famotidine [Pepcid] 20 mg PO BID 05/28/16 [History] Quetiapine Fumarate [Seroquel] 400 mg PO HS 05/28/16 [History] Prazosin HCl [Minipress] 2 mg PO HS #7 capsule 12/01/16 [Rx] Allergies/Adverse Reactions: 3 Allergy/AdvReac Type Severity Reaction Status Date / Time No Known Allergies Allergy Verified 11/12/14 21:47 Procedures/tests Complete & Pending: Procedures Performed prior 72 hours Category Date Time Status EV echocardiogram Routine Y 12/01/16 17:10 Completed Date of admission: 11/29/16 17:53 Primary care physician: PCP NONE Discharging clinician: Janina West Anticipated date of discharge: 12/01/16 - Patient Status Disposition: Home, Self-Care Condition: Good Functional capacity at discharge: independent ambulation Overall status at discharge: patient is back to baseline - Discharge Instructions Instructions: Chest Pain (DC), Chest Pain (GEN), Cocaine Abuse, [employer] (GEN) Follow Up With: Pk Zamora DO [Resident] - 12/03/16 4:00 pm Additional Instructions: Follow-up with the resident clinic. Please be mindful of keeping appointments with the resident clinic. Continue your normal home medications. Minipress prescription sent to [facility]. Pick it up tomorrow and use for withdrawal symptoms. Resume your normal activities as tolerated. Do not use illegal drugs or drink alcohol. Return to the emergency department as needed. Continue to attempt to get into a rehabilitation program. - Diet and Activity Activity: increase activity as tolerated Diet: advance to your usual diet Hospital course: Ms. Rubi is a 41 year old female with past medical history of narcotic abuse , alcohol withdrawal symptoms, hepatitis C, depression, anxiety, major depression, substance abuse, malingering, benzo and cocaine abuse. Patient states that she is feeling better. Testing has been negative. She reports that she will be hopefully going to rehabilitation soon, outside rn social services is assisting her with placement. She denies chest pain. She denies any use of hair when since prior to admission. Minipress called into [facility]. Patient will continue her other home medications. Her vital signs are stable and within normal limits, labs are stable and within normal limits. See assessment and plan for hospital course. Patient is ready for discharge. - Time Spent with Patient Total time spent providing and/or coordinating discharge services: Less than 30 minutes - Constitutional Vitals: Temp Pulse Resp BP Pulse Ox 98.4 F 63 16 108/74 98 12/01/16 15:20 12/01/16 15:20 12/01/16 15:20 12/01/16 15:20 12/01/16 15:20 General appearance: Present: cooperative, A&O X 3, pleasant, no acute distress, answers questions appropriately - Head Head exam: Present: atraumatic, normal inspection, normocephalic - Eye Eye exam: Present: normal appearance, conjuntiva pink, sclera anicteric - Neck Neck exam general surgery: Present: supple, trachea midline. Absent: lymphadenopathy - Respiratory Respiratory exam: Present: CTAB. Absent: accessory muscle use, chest wall tenderness, rales, rhonchi, wheezes - Cardiovascular Cardiovascular exam: Present: RRR, +S1, +S2. Absent: diastolic murmur, gallop, rubs, systolic murmur - GI/Abdominal GI/Abdominal exam: Present: normal bowel sounds, soft, no peritoneal signs. Absent: distended, hepatomegaly, tenderness - Extremities Exam Extremities exam: Present: normal capillary refill, warm, radial pulses palpable and symmetrical. Absent: calf tenderness, cyanotic, pedal edema - Neurological Exam Neurological exam: Present: CN II-XII intact, oriented X3, no focal deficits. Absent: pronater drift, facial droop, speech deficit - Skin Skin exam: Present: dry, intact, normal color, warm. Absent: rash
== END 2016-12-01 19:05 | disposition home or self-care (01) ==
LOC: 3BNU 14:37 → EMEROO 14:37 → 3BNU 17:55
PROVIDERS: ADMIT Nurse Practitioner; ATTEND Registered Nurse